=== PATIENT | female | born 1970 | race Caucasian/White ===

== ENCOUNTER 2016-06-04 01:05 | Emergency (ER) | payer SELFPAY ==
[~2016-06-04] VITALS: Ht 160 cm; Wt 59.0 kg
[2016-06-04 01:09] VITALS: BP 115/75
[2016-06-04] MEDS ORDERED: HYDROCODONE/APAP 5/325MG TABLET. PO ONE (02:00)
[2016-06-04] MEDS ORDERED: DIPHTH,PERTUSS(ACELL),TET TOX 0.5 ML DISP.SYRIN. VAX IM ONE (02:00)
[2016-06-04] MEDS ORDERED: LIDOCAINE 1% / SOD BICARB 8.4% 20 ML VIAL. IJ ONE (02:00)
[2016-06-04] MEDS ORDERED: DOXYCYCLINE HYCLATE 100 MG TABLET PO ONE (02:30)
[2016-06-04] MEDS ORDERED: DOXY100T PO (02:40)
--- NOTE | 2016-06-04 02:40 | PHYS DOC ---
Past Medical History Past Medical History: Other Additional Past Medical Histor: andres [place] Past Surgical History: Alcohol Use: Occasionally Drug Use: None Adult General Chief Complaint Chief Complaint: ANIMAL BITE HPI HPI Patient is a 45 year old female who presents s/p dog bite. Patient reports she accidentally stepped on the paw of her boyfriend's dog and it bit her L forearm. She presents now with pain at that site. She reports the dog it UTD on its vaccinations. She, however, is unsure of her last tetanus booster. No other injuries or complaints. Review of Systems Review of Systems Constitutional: Denies fever or chills Musculoskeletal: Pain at site of dog bite L forearm Neurologic: Denies focal weakness or sensory changes Current Medications Current Medications Current Medications Medications (Trade) Dose Ordered Sig/Jaden Start Time Stop Time Status Last Admin Dose Admin Acetaminophen/ Hydrocodone Bitart (Lortab 5/325) 1 tab 1X ONCE 06/04/16 02:00 06/04/16 02:01 DC 06/04/16 01:57 1 TAB Diphtheria/ Tetanus/Acell Pertussis (Boostrix) 0.5 ml ONCE ONCE 06/04/16 02:00 06/04/16 02:01 DC 06/04/16 01:59 0.5 ML Doxycycline Hyclate (Vibra-Tab) 100 mg 1X ONCE 06/04/16 02:30 06/04/16 02:31 DC 06/04/16 03:00 100 MG Lidocaine/Sodium Bicarbonate (Buffered Lidocaine 1%) 20 ml 1X ONCE 06/04/16 02:00 06/04/16 02:01 DC 06/04/16 01:57 20 ML Neomycin/ Polymyxin/ Bacitracin (Triple Antibiotic Ointment) 1 pkt 1X ONCE 06/04/16 03:15 06/04/16 03:16 DC 06/04/16 03:00 1 PKT Allergies Allergies Allergies Coded Allergies Type Severity Reaction Last Updated Verified amoxicillin Allergy Intermediate 06/04/16 Yes Physical Exam Physical Exam Constitutional: Well developed, well nourished, no acute distress, non-toxic appearance HENT: Normocephalic, atraumatic Neck: No stridor Pulmonary: No respiratory distress Skin: Warm, dry Musculoskeletal: Several small (1.5cm or less) wounds to L forearm just distal to elbow; 2+ radial pulse, motor function and sensation to light touch intact Current Patient Data Vital Signs Vital Signs Date Time Temp Pulse Resp B/P Pulse Ox O2 Delivery O2 Flow Rate FiO2 06/04/16 01:57 18 98 Room Air 06/04/16 01:09 98.4 81 98.4 EKG EKG [] Radiology/Procedures Radiology/Procedures X-ray L elbow (my read): No acute bony abnormality, no foreign body noted Course & Med Decision Making Course & Med Decision Making Pertinent Labs and Imaging studies reviewed. (See chart for details) Patient is 45 year old female who presents s/p dog bite. Wounds thoroughly irrigated and cleaned with antimicrobial scrub (chloroxylenol). Oral pain pill and tetanus booster ordered. X-ray ordered to r/o foreign body (ie broken off tooth) or bony abnormality; none seen per my read. Two of the lacerations amenable to repair; they were loosely approximated. Will discharge home with rx for abx (doxycycline given allergy to amoxicillin), instructions for follow up, and return precautions. Dragon Disclaimer Dragon Disclaimer This electronic medical record was generated, in whole or in part, using a voice recognition dictation system. PROCEDURE Procedure Indication: Lacerations to L forearm Procedure: The patient was placed in the appropriate position and anesthesia around the lacerations was achieved with 1% lidocaine. The area was thoroughly cleansed with sterile saline and antimicrobial scrub. The lacerations were loosely closed with 2 sutures of 5-0 ethilon each. The wound was then covered with triple antibiotic ointment and dressed by nursing. Total repaired wound length: 1.5cm for each wound (two total), simple and uncomplicated The patient tolerated the procedure well Complications: None. Departure Departure Impression: Primary Impression: Dog bite Disposition: HOME, SELF-CARE Condition: STABLE Referrals: NEELA MITCHELL DO (PCP) Patient Instructions: Animal Bite, Laceration Care, Adult Additional Instructions: Thank you for allowing us to provide care today in the Emergency Department. Take the provided medication as directed. Be sure to take the full course of antibiotics. Your stitches will need to be removed in about 7 days. You can return to the ED , see your primary care doctor, or go to an urgent care for this. Schedule a follow up appointment with your primary care doctor. Return promptly to the Emergency Department if you develop any new or concerning symptoms. Scripts Doxycycline Hyclate 100 Mg Tablet1 Tab PO BID #10 TAB Prov:MARIETTA BRANNON MD 06/04/16 MARIETTA BRANNON MD Jun 04, 2016 02:40
[2016-06-04] MEDS ORDERED: NEOMY/BACITR/POLYMYXIN OINT PACKET. TP ONE (03:15)
--- NOTE | 2016-06-04 07:19 | RAD ---
Left elbow, 3 views, 06/04/2016: History: Dog bite No fracture or dislocation is identified. No joint effusion is seen. There are streaky collections of gas in the soft tissues anteriorly compatible with the history of penetrating trauma versus infection. No radiopaque foreign body is seen. IMPRESSION: No acute bony abnormality is detected.
== END 2016-06-04 03:10 | disposition home or self-care (01) ==
LOC: ER 01:05
DX: S51.852A Open bite of left forearm, initial encounter (principal); Z88.1 Allergy status to other antibiotic agents; W54.0XXA Bitten by dog, initial encounter; Y93.89 Activity, other specified; Y92.89 Other specified places as the place of occurrence of the external cause; Y99.8 Other external cause status
CPT/HCPCS: 12001; 73080; 90471; 90715; 99284-25